=== PATIENT | male | born 2000 | race Caucasian/White ===

== ENCOUNTER → 2019-09-23 | Outpatient (CLI) | payer BC ==
[~2019-09-23] MED LIST: AZTH250C PO; OXYC1TAB87 PO
--- NOTE | 2019-09-23 10:18 | Diagnostic Imaging Report ---
PROCEDURE: MRI left joint lower extremity without contrast. TECHNIQUE: Multiplanar, multisequence non contrast-enhanced MRI of the left lower extremity was accomplished. INDICATION: Left knee injury playing basketball COMPARISON: None. FINDINGS: There is motion artifact on multiple sequences. There is mild bone marrow edema at the lateral femoral condyle, likely from contusion from impaction injury. Mild edema is seen at the posterior aspect of the medial tibial plateau as well. There is a moderate left knee joint effusion. The articular cartilage in the patellofemoral compartment demonstrates no full-thickness defects. The articular cartilage in the medial and lateral compartments demonstrate no full-thickness defects. There is increased signal at the anterior horn of the lateral meniscus. No definite meniscal tear is seen. The medial collateral ligament appears intact. The fibular collateral ligament is intact. The popliteal tendon attachment is intact. The biceps femoris appears intact. The iliotibial band is intact. There is edema about the fibular collateral ligament, with a defect at the posterior attachment of the lateral retinaculum. There is a complete tear of the proximal anterior cruciate ligament. The posterior cruciate ligament appears intact. There is mild deep soft tissue edema about the knee, particularly laterally. There is mild edema about the medial and lateral retinacula bilaterally. No muscular atrophy is seen. No fluid collections are seen. IMPRESSION: 1. Complete tear of the proximal anterior cruciate ligament in the left knee. 2. Disruption of the lateral retinaculum at the posterior attachment. 3. Bone contusions at the lateral femoral condyle and the medial tibial plateau. 4. Contusion of the lateral meniscus. 5. Moderate left knee joint effusion. Dictated by: Dictated on workstation # [id number]
== END ==
LOC: RAD 08:27
PROVIDERS: ATTEND Orthopaedic Surgery
DX: S83.512A Sprain of anterior cruciate ligament of left knee, initial encounter (principal); S86.812A Strain of other muscle(s) and tendon(s) at lower leg level, left leg, initial encounter; S70.12XA Contusion of left thigh, initial encounter; S80.02XA Contusion of left knee, initial encounter; S83.282A Other tear of lateral meniscus, current injury, left knee, initial encounter; M25.462 Effusion, left knee; X58.XXXA Exposure to other specified factors, initial encounter; Y93.67 Activity, basketball
CPT/HCPCS: 73721

== ENCOUNTER 2020-01-06 14:39 | Outpatient (RCR) | payer BC | END 2020-01-07 | disposition home or self-care (01) | PROVIDERS: ATTEND Orthopaedic Surgery | DX: M23.612 Other spontaneous disruption of anterior cruciate ligament of left knee (principal); R26.9 Unspecified abnormalities of gait and mobility; R53.1 Weakness; Z98.890 Other specified postprocedural states ==

== ENCOUNTER 2020-03-05 13:00 | Outpatient (RCR) | payer BC | END 2020-04-08 | disposition home or self-care (01) | PROVIDERS: ATTEND Orthopaedic Surgery | DX: M23.612 Other spontaneous disruption of anterior cruciate ligament of left knee (principal); R26.9 Unspecified abnormalities of gait and mobility; R53.1 Weakness; Z98.890 Other specified postprocedural states ==

== ENCOUNTER → 2020-07-22 | Outpatient (RCR) | payer BC | END | disposition home or self-care (01) | PROVIDERS: ATTEND Orthopaedic Surgery | DX: M23.612 Other spontaneous disruption of anterior cruciate ligament of left knee (principal); R26.89 Other abnormalities of gait and mobility; X50.1XXA Overexertion from prolonged static or awkward postures, initial encounter; Y93.67 Activity, basketball; Z98.890 Other specified postprocedural states; Z96.7 Presence of other bone and tendon implants ==